=== PATIENT | female | born 1970 | race Caucasian/White ===

== ENCOUNTER 2018-10-06 14:31 | Outpatient (CLI) | payer BC ==
--- NOTE | 2018-10-06 15:02 | CT ---
CT ABDOMEN AND PELVIS WITHOUT CONTRAST: Comparison: None. History: Right flank pain and microhematuria. Technique: Multiple contiguous axial images were obtained in a CT of the abdomen and pelvis without c ontrast. Sagittal and coronal reformats were performed. FINDINGS: The liver, gallbladder, kidneys, adrenal glands, spleen, and pancreas are unremarkable, although eval uation is limited without IV contrast. No calcifications are seen in either kidney, either ureter, or within the urinary bladder. The patient is status post hysterectomy. The large and small bowel are unremarkable. The appendix is not definitely seen and may have been removed. No abdominal or pelvic lymphadenopathy are seen. Ather osclerotic calcifications are seen in the aorta. The osseous structures, visualized inferior thorax and abdominal wall soft tissues are unremarkable. IMPRESSION: No evidence of acute intraabdominal/pelvic abnormality. POS: [facility]
== END 2018-10-06 14:32 | disposition home or self-care (01) ==
LOC: BICCT 14:31
PROVIDERS: ATTEND Physician Assistant
DX: R10.9 Unspecified abdominal pain (principal); R31.29 Other microscopic hematuria
CPT/HCPCS: 74176

== ENCOUNTER 2022-01-01 12:06 | Outpatient (CLI) | payer OTHER | END 2022-01-01 12:07 | disposition home or self-care (01) | LOC: BICRAD 12:06 | PROVIDERS: ATTEND Family Medicine | DX: M46.1 Sacroiliitis, not elsewhere classified (principal); M47.816 Spondylosis without myelopathy or radiculopathy, lumbar region | CPT/HCPCS: 72100 ==

== ENCOUNTER 2022-01-09 09:15 | Outpatient (CLI) | payer OTHER | END 2022-01-09 09:16 | disposition home or self-care (01) | LOC: BICMAMMO 09:15 | PROVIDERS: ATTEND Family Medicine | DX: Z12.31 Encounter for screening mammogram for malignant neoplasm of breast (principal); Z85.41 Personal history of malignant neoplasm of cervix uteri | CPT/HCPCS: 77063; 77067 ==

== ENCOUNTER 2022-03-11 18:45 | Emergency (ER) | payer OTHER ==
[2022-03-11] MEDS ORDERED: Ketorolac Tromethamine 30 MG/ML VIAL ONE (19:22)
== END 2022-03-11 19:29 | disposition home or self-care (01) ==
LOC: ERS 18:45
DX: S16.1XXA Strain of muscle, fascia and tendon at neck level, initial encounter (principal); S29.012A Strain of muscle and tendon of back wall of thorax, initial encounter; K21.9 Gastro-esophageal reflux disease without esophagitis; E78.00 Pure hypercholesterolemia, unspecified; I10 Essential (primary) hypertension; F17.210 Nicotine dependence, cigarettes, uncomplicated; V43.62XA Car passenger injured in collision with other type car in traffic accident, initial encounter
CPT/HCPCS: 99284; J1885